=== PATIENT | male | born 1945 | race Caucasian/White ===

== ENCOUNTER 2018-04-25 14:46 | Outpatient (REF) | payer MEDICARE, SELFPAY ==
[2018-04-25 20:54] LABS: Anion Gap 10.1 mmol/L (3-11); BUN 16 mg/dL (7-18); CO2 27.9 mmol/L (21.0-32.0); CREATININE 1.22 mg/dL (0.70-1.30); Chloride 102 mmol/L (98-107); Estimated GFR 57.91 (mL/min/1.73m2); Glucose 96 mg/dL (70-100); Potassium 4.2 mmol/L (3.5-5.1); Sodium 140 mmol/L (136-145)
[2018-04-29 08:56] LABS: PSA, Diagnostic 14.3 ng/ml (0-6.5)
== END 2018-04-25 15:06 ==
LOC: NCHCN 14:46
PROVIDERS: PCP Family Medicine; Visit Provider Family Medicine
DX: I42.9 Cardiomyopathy, unspecified (principal); N40.0 Benign prostatic hyperplasia without lower urinary tract symptoms
CPT/HCPCS: 80048; 84153

== ENCOUNTER 2018-10-01 09:49 | Outpatient (REF) | payer MEDICARE, SELFPAY ==
[2018-10-01 22:12] LABS: Anion Gap 8.1 mmol/L (3-11); BUN 15 mg/dL (7-18); CO2 29.9 mmol/L (21.0-32.0); CREATININE 1.46 mg/dL (0.70-1.30); Calcium 9.3 mg/dL (8.5-10.1); Chloride 104 mmol/L (98-107); Estimated GFR 47.07 (mL/min/1.73m2); Glucose 95 mg/dL (70-100); Magnesium 1.8 mg/dL (1.8-2.4); Potassium 4.4 mmol/L (3.5-5.1); Sodium 142 mmol/L (136-145); TSH (W/Ref FT4) 4.49 uIU/mL (0.358-3.74); Vitamin B12 339 pg/mL (193-986)
[2018-10-03 10:33] LABS: PSA, Diagnostic 11.2 ng/ml (0-6.5)
== END 2018-10-01 10:09 ==
LOC: NCHCN 09:49
PROVIDERS: PCP Family Medicine; Visit Provider Family Medicine
DX: R42 Dizziness and giddiness (principal); R97.20 Elevated prostate specific antigen [PSA]; I48.0 Paroxysmal atrial fibrillation; N40.0 Benign prostatic hyperplasia without lower urinary tract symptoms
CPT/HCPCS: 80048; 82607; 83735; 84153; 84439; 84443

== ENCOUNTER 2018-10-04 04:17 | Outpatient (CLI) | payer MEDICARE, SELFPAY ==
--- NOTE | 2018-10-07 11:05 | HOLTER_ITS ---
24-Hour Study Atrial fibrillation throughout monitor. Nocturnal heart rates approximately 90 bpm, daytime heart rates approximately 100-110 bpm. Rare single PVC versus aberrantly conducted beat. Three couplet. No VT. No bradycardia. SYMPTOMS: Agitated noted once during atrial fibrillation 107 bpm. Average heart rate 101 bpm, range 70-164 bpm.
== END 2018-10-04 04:37 ==
PROVIDERS: PCP Family Medicine; Visit Provider Family Medicine
DX: I48.91 Unspecified atrial fibrillation (principal)
CPT/HCPCS: 93225

== ENCOUNTER 2018-10-05 14:40 | Outpatient (CLI) | payer MEDICARE, SELFPAY | END 2018-10-05 15:00 | PROVIDERS: PCP Family Medicine; Visit Provider Family Medicine | DX: I48.91 Unspecified atrial fibrillation (principal) | CPT/HCPCS: 93226 ==

== ENCOUNTER 2018-10-07 09:09 | Outpatient (CLI) | payer MEDICARE, SELFPAY | END 2018-10-07 09:29 | PROVIDERS: PCP Family Medicine; Referring Provider Family Medicine; Visit Provider Internal Medicine Interventional Cardiology | DX: I48.91 Unspecified atrial fibrillation (principal) | CPT/HCPCS: 93227 ==

== ENCOUNTER 2019-01-02 16:33 | Outpatient (REF) | payer MEDICARE, SELFPAY ==
[2019-01-02 21:04] LABS: Abs Immature Grans 0.03 k/cumm (0.0-0.09); HCT 41.1 % (40.0-50.0); HGB 14.1 g/dL (13.5-17.5); Mean Corp. HGB Concentration 34.3 g/dL (32.0-36.0); Mean Corpuscular Hemoglobin 30.6 pg (27.0-33.0); Mean Corpuscular Volume 89.2 fL (80-95); Mean Platelet Volume 11.2 fL (8.0-11.0); Platelet Count 235 x1000/uL (130-400); RBC 4.61 m/cumm (4.50-6.00); RBC Distribution Width 14.5 % (11.8-14.1); White Blood Cell Count 7.17 k/cumm (4.4-10.8)
[2019-01-02 21:18] LABS: ALT 64 U/L (12-78); AST 48 U/L (15-37); Albumin 3.3 g/dL (3.4-5.0); Alkaline Phosphatase 124 U/L (46-116); Anion Gap 9.4 mmol/L (3-11); BUN 16 mg/dL (7-18); CO2 26.6 mmol/L (21.0-32.0); CREATININE 1.22 mg/dL (0.70-1.30); Calcium 8.9 mg/dL (8.5-10.1); Chloride 106 mmol/L (98-107); Estimated GFR 57.91 (mL/min/1.73m2); Glucose 107 mg/dL (70-100); Potassium 4.3 mmol/L (3.5-5.1); Sodium 142 mmol/L (136-145); Total Protein 6.5 g/dL (6.4-8.2)
[2019-01-02 21:58] LABS: Absolute Lymphocyte Count 2.01 k/cumm (1.2-3.4); Absolute Monocyte Count 1.36 k/cumm (0.11-0.7); Atypical Lymphocytes % 0; Diff Comment Manual Differential; RBC Morphology Normal
[2019-01-06 09:34] LABS: PSA, Diagnostic 50.6 ng/ml (0-6.5)
[2019-01-06 09:40] LABS: Hepatitis C Ab w Rflx HCV PCR Negative (NEGAT)
== END 2019-01-02 16:53 ==
LOC: NCHCN 16:33
PROVIDERS: PCP Family Medicine; Visit Provider Family Medicine
DX: R50.81 Fever presenting with conditions classified elsewhere (principal); K29.70 Gastritis, unspecified, without bleeding; R97.20 Elevated prostate specific antigen [PSA]
CPT/HCPCS: 80053; 86803; 84153; 85025

== ENCOUNTER 2019-01-04 11:25 | Outpatient (REF) | payer MEDICARE, SELFPAY ==
[2019-01-03 20:16] LABS: Bacteria Many HPF (Negative); C & S Indicated? Yes; Casts Negative LPF (Negative); Crystals Many Amorphous HPF (Negative); Epithelial Cells Negative HPF (Negative); Mucus Moderate (Negative); WBC 20-50 HPF (0-5)
[2019-01-07 13:58] LABS: Helicobacter pylori Ag, Feces Negative (NEGAT)
== END 2019-01-04 11:45 ==
LOC: NCHCN 11:25
PROVIDERS: PCP Family Medicine; Visit Provider Family Medicine
DX: R50.81 Fever presenting with conditions classified elsewhere (principal); K29.70 Gastritis, unspecified, without bleeding; R97.20 Elevated prostate specific antigen [PSA]
CPT/HCPCS: 87077; 87338; 81015; 87086; 87186

== ENCOUNTER 2019-03-18 15:31 | Outpatient (REF) | payer MEDICARE, SELFPAY | END 2019-03-18 15:51 | LOC: NCHCN 15:31 | PROVIDERS: PCP Family Medicine; Visit Provider Family Medicine | DX: N40.0 Benign prostatic hyperplasia without lower urinary tract symptoms (principal) | CPT/HCPCS: 84153 ==

== ENCOUNTER 2020-01-22 13:01 | Outpatient (REF) | payer MEDICARE, SELFPAY ==
[2020-01-22 19:33] LABS: HGB 14.5 g/dL (13.5-17.5); MCH 30.2 pg (27.0-33.0); MCHC 33.7 % (32.0-36.0); MCV 89.6 fL (80-95); MPV 11.5 fL (8.0-11.0); Platelet Count 174 10^3/uL (130-400); RDW 13.9 % (11.8-14.1); RDW-SD 45.3 fL
[2020-01-22 19:53] LABS: ALT 40 U/L (16-63); AST 27 U/L (15-37); Albumin 3.9 g/dL (3.4-5.0); Alkaline Phosphatase 113 U/L (46-116); Anion Gap 9.6 mmol/L (3-11); BUN 14 mg/dL (7-18); Bilirubin, Total 2.7 mg/dL (0.2-1.0); C-Reactive Protein 1.05 mg/dL (0.0-0.3); CO2 29.4 mmol/L (21.0-32.0); CREATININE 1.14 mg/dL (0.70-1.30); Calcium 9.1 mg/dL (8.5-10.1); Chloride 102 mmol/L (98-107); Glucose 101 mg/dL (74-106); Potassium 4.6 mmol/L (3.5-5.1); Sodium 141 mmol/L (136-145); TSH (W/Ref FT4) 3.48 uIU/mL (0.36-3.74); Total Protein 6.9 g/dL (6.4-8.2)
[2020-01-22 20:34] LABS: ESR 11 mm/hr (1-20)
== END 2020-01-22 13:21 ==
LOC: NCHCN 13:01
PROVIDERS: PCP Family Medicine; Visit Provider Family Medicine
DX: R53.83 Other fatigue (principal); I48.0 Paroxysmal atrial fibrillation; M06.9 Rheumatoid arthritis, unspecified
CPT/HCPCS: 80053; 85027; 85652; 84443; 86140

== ENCOUNTER 2021-02-01 17:10 | Outpatient (REF) | payer MEDICARE, SELFPAY ==
[2021-02-01 20:11] LABS: HCT 43.6 % (40.0-50.0); HGB 14.4 g/dL (13.5-17.5); MCH 30.2 pg (27.0-33.0); MCV 91.4 fL (80-95); MPV 11.4 fL (8.0-11.0); Platelet Count 171 10^3/uL (130-400); RBC 4.77 10^6/uL (4.36-5.78); RDW 14.6 % (11.8-14.1); RDW-SD 49.3 fL; WBC 12.19 10^3/uL (4.4-10.8)
[2021-02-01 20:21] LABS: ESR 1 mm/hr (0-20)
[2021-02-01 21:06] LABS: ALT 39 U/L (16-63); AST 20 U/L (15-37); Albumin 3.7 g/dL (3.4-5.0); Alkaline Phosphatase 90 U/L (46-116); Anion Gap 7.5 mmol/L (3-11); BUN 27 mg/dL (7-18); Bilirubin, Total 2.1 mg/dL (0.2-1.0); C-Reactive Protein 0.28 mg/dL (0.0-0.3); CO2 28.5 mmol/L (21.0-32.0); CREATININE 1.1 mg/dL (0.70-1.30); Calcium 9.2 mg/dL (8.5-10.1); Chloride 103 mmol/L (98-107); Glucose 107 mg/dL (74-106); Potassium 4.7 mmol/L (3.5-5.1); Sodium 139 mmol/L (136-145); TSH (W/Ref FT4) 1.08 uIU/mL (0.36-3.74); Total Protein 6.6 g/dL (6.4-8.2)
== END 2021-02-01 17:11 | disposition home or self-care (01) ==
LOC: NCHCN 17:10
PROVIDERS: PCP Family Medicine; Visit Provider Family Medicine
DX: I48.0 Paroxysmal atrial fibrillation (principal); I42.9 Cardiomyopathy, unspecified; M06.9 Rheumatoid arthritis, unspecified; N28.9 Disorder of kidney and ureter, unspecified; M46.46 Discitis, unspecified, lumbar region; Z79.01 Long term (current) use of anticoagulants
CPT/HCPCS: 80053; 85027; 85652; 84443; 86140

== ENCOUNTER → 2021-03-01 01:21 | Outpatient (CLI) | payer MEDICARE, SELFPAY ==
[2021-03-01] MEDS: Gadoterate meglumine 20 ML VIAL IVP (09:26)
--- NOTE | 2021-03-01 09:50 | DI.MRI_ITS ---
Exam(s) MR ABDOMEN WO/W EXAM: MR ABDOMEN WO/W CLINICAL HISTORY: F/U ABNL CT,R93.5,RENAL LESION TECHNIQUE: Multiplanar multisequence MRA of the Abdomen was performed. CONTRAST MATERIAL: IV Contrast: 20 mL of Dotarem contrast administered. COMPARISON: CT CT ABDOMEN AND PELVIS WITH CONTRAST from 06/30/[address] ABDOMEN AND PELVIS WITH CONTRAST from 06/30/2020 FINDINGS: Liver: There are few small nonenhancing simple cysts in the liver. The largest is in the right lobe measures 1.3 cm. Pancreas: Unremarkable. Gallbladder and Bile Ducts: Status post cholecystectomy. No biliary ductal dilatation. Adrenals: Unremarkable. Kidneys: There are multiple (greater than 10) bilateral simple renal cysts present. The largest is i n the superior pole and measures 3 x 2.9 cm. There are also a few well-circumscribed cortical renal lesions which show hyperintense signal on the T1 weighted images and hypointense signal on the T2 jere ghted images. These areas show no enhancement. They are most consistent with a hemorrhagic cyst. T he largest is seen in the posterior aspect of the right kidney and corresponds to the CT abnormality. It measures 1.8 cm x 1.7 cm. Of the smaller lesions with similar MRI characteristics, the largest measures 4 mm. No enhancing renal masses are present. Spleen: Unremarkable. Aorta: No aneurysm. Soft Tissues: There is a thin nonenhancing fat attenuation lesion in the subcutaneous tissues along t he right lateral chest wall. It measures 8.3 cm craniocaudad by 3.1 cm transverse by 7.1 cm AP. It is most consistent with a lipoma. Bone: There is an S-type thoracolumbar scoliosis. Lymph Nodes: Unremarkable. IMPRESSION: 1. Bilateral simple and hemorrhagic cysts. No follow-up is recommended. 2. No solid renal mass or enhancing lesion. 3. Hepatic simple cysts. 4. Right lateral subcutaneous lipoma. DATA REPOSITORY:
== END ==
PROVIDERS: PCP Family Medicine; Visit Provider Family Medicine
DX: R93.5 Abnormal findings on diagnostic imaging of other abdominal regions, including retroperitoneum (principal); N28.9 Disorder of kidney and ureter, unspecified; K76.89 Other specified diseases of liver; D17.1 Benign lipomatous neoplasm of skin and subcutaneous tissue of trunk
CPT/HCPCS: 74183

== ENCOUNTER → 2021-03-03 02:11 | Outpatient (CLI) | payer MEDICARE, SELFPAY ==
--- NOTE | 2021-03-03 | DI.MRI_ITS ---
Exam(s) MR CERVICAL SPINE WO EXAM: MR CERVICAL SPINE WO CLINICAL HISTORY: CERVICALGIA,M54.2 TECHNIQUE: Multiplanar multisequence MRI of the cervical spine was performed without intravenous con trast. COMPARISON: No exams were available for comparison FINDINGS: BONES: Vertebral body heights are maintained. Hypertrophic changes of the endplates are seen from C5- 6 to C7-T1. Alignment is normal. Mild degenerative endplate signal changes seen. There is fusion of the C7 and T1 vertebral bodies. CERVICAL CORD: Craniovertebral junction is unremarkable. The cervical cord is normal size and signal intensity. SOFT TISSUES: There is incompletely imaged fat signal intensity mass to the right of the paraspinal m uscles measuring 6.7 transverse by 3.7 AP by at least 7 cm craniocaudad. The findings are most sugge stive of a lipoma. C2-3: No disc herniation or bulge is identified. No significant central spinal canal or neural forami nal stenosis. C3-4: No disc herniation or bulge is identified. There are hypertrophic changes of the uncovertebral joints bilaterally, right greater than left. The findings result in mild bilateral neural foraminal narrowing. No significant central spinal canal stenosis. C4-5: No disc herniation or bulge is identified. There are prominent hypertrophic changes of the righ t uncovertebral joint causing moderate we severe right neural foraminal stenosis. No central spinal canal or left neural foraminal stenosis is present. C5-6: No disc herniation or bulge is identified. Mild hypertrophic changes are seen at the uncoverteb ral joints, left greater than right. No central spinal canal stenosis. Mild narrowing of the left n eural foramen. No significant right neural foraminal stenosis. C6-7: No disc herniation or bulge is identified. No significant central spinal canal or neural forami nal stenosis C7-T1: No disc herniation or bulge is identified. No significant central spinal canal or neural scot inal stenosis IMPRESSION: 1. Multilevel degenerative changes resulting in neural foraminal stenosis. The findings are most mar ked on the right at the C4-5 level. 2. Fat signal intensity mass to the right of the paraspinal muscles from C5 through T1. 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 DATA REPOSITORY:
[2021-03-03] MEDS: Normal Saline Flush 10 ML SYR IVP (10:09)
[2021-03-03] MEDS: Gadoterate meglumine 20 ML VIAL IV (10:09)
--- NOTE | 2021-03-03 10:35 | DI.MRI_ITS ---
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 TECHNIQUE: Multiplanar multisequence MRI of the Lumbar Spine was performed. CONTRAST MATERIAL: IV Contrast: 20 mL of Dotarem contrast administered. COMPARISON: MR MRI SPINE LUMBAR WITHOUT AND W/ CONTRAST from 07/12/2020 MR MRI SPINE LUMBAR WITHOUT AND W/ CONTRAST from 08/13/2020 FINDINGS: Bones: The last intervertebral disc space is designated the L5/S1 level for the numbering purpose of this examination. There does appear to be some loss of the cortex of the posterior and superior endp late of L4 which is unchanged. Alignment is satisfactory. Endplate signal changes are again seen at L2-3, L3-4 and L4-L5. Endplate osteophytes are seen at all levels of the lumbar spine with sparing of the L5-S1 disc space. Cord: The conus tip ends at the T12 level. It is of normal size and signal intensity. T12-L1: No disc herniations or bulges are present. No central spinal canal or neural foraminal stenos is. L1-2: No disc herniations or bulges are present. No central spinal canal or neural foraminal stenosis . L2-3: No focal disc herniation is seen. There are degenerative changes of the facets. There is mild narrowing of the central spinal canal. Mild bilateral neural foraminal stenosis is present. L3-4: There is a diffuse disc bulge. There are hypertrophic changes of the facets. These contribute to cause marked central spinal canal stenosis. Moderate right and mild left neural foraminal stenos is is present. L4-5: There is a diffuse disc bulge. There are hypertrophic changes of the facets and ligamentum fla vum. These contribute to cause moderately severe central spinal canal stenosis. Moderate bilateral neural foraminal stenosis is present. L5-S1: No focal disc herniation. There are hypertrophic changes of the facets. This does narrow the transverse diameter of the central spinal canal. No significant right neural foraminal stenosis. M oderate left neural foraminal stenosis is present. Soft tissues: The visualized SI joints and sacrum are well maintained. The paraspinal soft tissues ar e unremarkable. Stable bilateral renal cysts are present. There is persistent enhancement seen involving the L3 and L4 vertebral bodies. There has been a decr ease in the enhancement in the epidural soft tissues since 08/13/2020. No focal fluid collection is s een to suggest an abscess. There is no discal enhancement.. IMPRESSION: 1. Marked decrease in the enhancement of the paraspinal soft tissues an epidural soft tissues at the L3-4 disc level since 08/13/2020. No focal fluid collection is seen to suggest an abscess. 2. Multilevel degenerative changes in the lumbar spine resulting in central spinal canal neural scot inal stenosis as described above. DATA REPOSITORY:
== END ==
PROVIDERS: PCP Family Medicine; Visit Provider Family Medicine
DX: M47.26 Other spondylosis with radiculopathy, lumbar region; M79.89 Other specified soft tissue disorders; M54.2 Cervicalgia; M48.02 Spinal stenosis, cervical region
CPT/HCPCS: 72158; 72141

== ENCOUNTER 2021-03-25 09:56 | Outpatient (REF) | payer MEDICARE, SELFPAY ==
[2021-03-26 14:20] LABS: COVID-19 RT-PCR UVMMC Result Negative (Negative)
== END 2021-03-25 09:57 | disposition home or self-care (01) ==
LOC: NCHCN 09:56
PROVIDERS: PCP Family Medicine; Visit Provider Family Medicine
DX: Z20.822 Contact with and (suspected) exposure to COVID-19 (principal); J06.9 Acute upper respiratory infection, unspecified
CPT/HCPCS: U0003; U0005